=== PATIENT | female | born 1975 | race Caucasian/White ===

== ENCOUNTER 2018-06-06 13:56 | Emergency (ER) | payer MEDICAID ==
[~2018-06-06] VITALS: Ht 154.9 cm; Wt 76.9 kg
[2018-06-06 14:05] VITALS: BP 123/88
[2018-06-06] MEDS ORDERED: HYDR-4353 PO (14:38)
== END 2018-06-06 14:52 | disposition home or self-care (01) ==
LOC: ER 13:57
DX: G35 Multiple sclerosis (principal); Z76.0 Encounter for issue of repeat prescription; Z56.0 Unemployment, unspecified; Z88.2 Allergy status to sulfonamides; Z91.040 Latex allergy status
CPT/HCPCS: 99283